=== PATIENT | female | born 1985 | race Hispanic/Latino ===

== ENCOUNTER 2018-07-24 11:37 | Observation (INO) | payer SELFPAY ==
[2018-07-18 11:31] VITALS: BMI 20.7
[2018-07-24 13:02] LABS: BASO # 0.1 K/uL (0.0-0.2); BASO % 0.8 % (0.0-2.0); EOS % 0.4 % (0.0-4.0); HEMOGLOBIN 12.7 g/dL (12.0-16.0); LYMPH # 1.9 K/uL (1.0-4.3); LYMPH % 22.4 % (20.0-40.0); MEAN CELL VOLUME 81.8 fl (81.0-99.0); MEAN CORPUSCULAR HEMOGLOBIN 27.4 pg (27.0-31.0); MEAN CORPUSCULAR HGB CONC 33.5 g/dL (33.0-37.0); MEAN PLATELET VOLUME 10.7 fl (7.2-11.7); MONO # 0.5 K/uL (0.0-0.8); NEUT # 6.1 K/uL (1.8-7.0); NEUT % 70.4 % (50.0-75.0); RBC 4.63 Mil/uL (3.80-5.20); RED CELL DISTRIBUTION WIDTH 12.9 % (11.5-14.5); WHITE BLOOD COUNT 8.7 K/uL (4.8-10.8)
[2018-07-24] MEDS ORDERED: Bupivacaine HCl 0.25% PF (30 ml) Inj ONE (13:03)
[2018-07-24] MEDS ORDERED: ceFAZolin IV 1 gm in Dextrose 1 GM/50 ML BAG IVPB ONE (13:03)
[2018-07-24] MEDS ORDERED: Rocuronium 10 mg/ml (5 ml) ONE (13:16)
[2018-07-24] MEDS ORDERED: ePHEDrine 50 mg/ml Inj ONE ×2 (13:16→14:45)
[2018-07-24] MEDS ORDERED: Propofol 10 mg/ml Inj (20 ML) ONE ×2 (13:16→14:42)
[2018-07-24] MEDS ORDERED: Lidocaine 4% (Laryng-O-Jet) Kit MM ONE (13:16)
[2018-07-24] MEDS ORDERED: Midazolam 2 MG/2 ML VIAL ONE (13:23)
[2018-07-24] MEDS ORDERED: Succinylcholine 200 mg/10 ml Inj IV ONE (13:25)
[2018-07-24] MEDS ORDERED: Lactated Ringer's 1,000 ML IV ONE ×2 (14:20→19:30)
[2018-07-24] MEDS ORDERED: Dexamethasone 4 mg/1 ml ONE (14:45)
--- NOTE | 2018-07-24 14:52 | OP ---
PROCEDURE DATE: 07/24/2018 SURGEON: Raul De Leon MD CORPORATE ATTORNEY: Dylan Cole MD ANESTHESIOLOGIST: Zahraa Andrew MD TYPE OF ANESTHESIA: General endotracheal. PREOPERATIVE DIAGNOSES: 1. pelvic pain. 2. rule out endometriosis. POSTOPERATIVE DIAGNOSES: 1. inflammatory changes suggestive of endometriosis PROCEDURES PERFORMED: 1. Exam under anesthesia. 2. Video assisted hysteroscopy. 3. Cystoscopy.injection of IC-Green dye. 4. Treatment of endometriosis COMPLICATIONS: None. SAMPLES SENT: 1. Left Uterosacral l endometriosis. 2. Left periureteral endometriosis. 3. Right periureteral endometriosis. 4. Right uterosacral endometriosis. 5. Left and right ovarian fossa endometriosis. INDICATION FOR THE PROCEDURE AND CONSENT: The patient had a long history of pelvic pain, dysmenorrhea, dyspareunia, abdominal pain, and bladder pain. The patient had been thoroughly evaluated and counseled regarding the pros and cons of the procedure, the reasonable alternatives, and possible complications. She understood and accepted the risks involved. Literature was provided to the patient. The patient was understanding and given her history and per surgical exam, she was at high risk in an average patient. She accepted all the risks involved, and all the questions had been answered to her satisfaction. FINDINGS OF SURGERY: Genitalia: Normal external genitalia, cervix without lesion and polyps. Hysteroscopy: Hysteroscopy shows a clear uterine cavity with no polyps or masses noticed. Cystoscopy: The cystoscopy was performed to rule out endometriosis and also any interstitial cystitis and also injury. The bladder was normal with no evidence of stone, trigonitis, or cystitis. A positive jet flow was identified in both ureters. Laparoscopy: The upper abdomen appeared to be normal. Gallbladder was normal. Liver edges appeared to be normal. Ascending colon and transverse were normal. There was evidence of adhesions, fibrosis, and endometriosis of the rectovaginal and pelvic sidewalls. The appendix appeared to be normal . Both fallopian tubes appeared to be patent, DESCRIPTION OF THE PROCEDURE: Initiation of the case: After adequate anesthesia was obtained, the patient was placed in the dorsal lithotomy position, and with extreme care, placement of the patient with hyperextension and hyperflexing of the hips. At this point, the patient was prepped and draped. The surgeon was gowned and gloved. A timeout was taken according to the hospital procedure and the procedure was started. At this point, we performed cystoscopy, bilateral ureteral catheterization. A cystoscope was inserted into the bladder under direct visualization and the bladder was visualized. The bladder was free of lesions and tumors. There was no evidence of interstitial cystitis, and there was only mild amount of trigonitis. At this point, both ureters were identified and appeared to be in their normal anatomical position. At this point, utilizing an open 5-[place] open-ended catheter, the left ureter was catheterized all the way to the distal ureter, and 5 mL of IC-Green was injected into this ureter. Similarly, the contralateral ureter was catheterized all the way to the distal ureter, and 5 mL of IC-Green was injected into the distal ureter. At this point, the stents were removed, and the cystoscope was removed, and the 16-[place] was inserted into the bladder. At this point, we proceeded with a hysteroscopy. A speculum was placed nto vagina, and the anterior lip of the cervix was grasped. The cervixwas dilated , and a hysteroscope was inserted into the cavity. The cavity appeared to be of normal size with no evidence of polyps, cysts, adenomyosis, or fibroids. At this point, we proceeded with placement of a trocar and docking of the da Lou Xi robot. The surgeon was regowned and gloved, and open laparoscopy was performed by making incision in the umbilicus and the fascia was incised. The peritoneum was entered in a blunt fashion, and the cannula was inserted under direct visualization. The abdomen was insufflated, and under direct visualization, three additional ports were inserted in the left upper quadrant, left mid quadrant, and right upper quadrant. At this point, the da Lou Xi robot was brought into the field and docked, and the instruments were inserted under direct visualization. All this with extreme care not to injure the bowel or another area. As per dictation, the upper abdomen appeared to be normal with no evidence of any lesions. At this point, we proceeded with treatment of endometriosis and excision of endometriosis. On the left hand side, fibrosis,especially in the left ovarian fossa was excised. In a very progressive step by step fashion, we dissected off fibrosis containing endometriosis and freed up the whole area. The ureters which had been lateralized. Areas of fibrosis and endometriosis were also identified in the posterior cul-de-sac and in the rectovaginal space which was also affected with endometriosis and fibrosis. At this point, we proceeded with the excision of perirectal endometriosis. The rectovaginal area had significant fibrosis and additional endometriosis was dissected from the posterior aspect of the uterus, and the rectovaginal space was entered at the level of the peritoneal reflection. All this done making sure that no damage to the rectum was performed. At this point, endometriosis was also excised from the right uterosacral area which also was affected by fibrosis and endometriosis. At this point, it was checked for hemostasis and appeared to be excellent. Both fallopian tubes were in good condition and patent. At This point we proceded with destruction of inflammatory areas utilizing the j-plasma energy device. After he was done we checked for hemostasis and organ integrity and all was normal. At this point, the da Lou Xi robot was removed. The abdomen was desufflated, and the incisions were closed in layers with 0 PDS for the fascia and 4-0 Monocryl for the skin. At the end of the procedure, all tips and instrument counts were correct. The patient tolerated the procedure well and was taken to the recovery room in excellent condition. Moises KANG, Raul FINLEY
[2018-07-24] MEDS ORDERED: Neostigmine 1:1000 (1 mg/ml) Inj ONE (15:42)
[2018-07-24] MEDS ORDERED: Oxycodone/Acetaminophen 5/325 mg Tab PO PRN ×2 (16:07→22:52)
[2018-07-24] MEDS ORDERED: Lactated Ringer's 1,000 ML IV SCH ×2 (16:15→19:15)
[2018-07-24] MEDS ORDERED: DiphenhydrAMINE 50 mg/ml Inj IVP PRN (16:20)
[2018-07-24] MEDS ORDERED: Dexamethasone 4 mg/1 ml IVP PRN (16:20)
[2018-07-24] MEDS ORDERED: HYDROmorphone 0.5 mg/0.5 ml ISec IVP PRN (16:20)
[2018-07-25 08:19] VITALS: BP 116/69; PULSE 69; RESP 16; TEMP 99.1; O2SAT 100
== END 2018-07-25 10:39 | disposition home or self-care (01) ==
LOC: H.OPSURG 11:37 → H.PEDS 19:05
PROVIDERS: ADMIT Obstetrics & Gynecology Reproductive Endocrinology; ATTEND Obstetrics & Gynecology Reproductive Endocrinology
DX: N80.0 Endometriosis of uterus (principal); N80.1 Endometriosis of ovary; N80.3 Endometriosis of pelvic peritoneum; N73.6 Female pelvic peritoneal adhesions (postinfective); Z88.2 Allergy status to sulfonamides
CPT/HCPCS: 36415; 52005; 58559; 58662; 85025; 86850; 86900; 88305; C1729; G0378; J0330; J0690; J1100; J1170; J1885; J2001; J2250; J2405; J2704; J2710; J2765; J3010; J7030; J7120; S2900